=== PATIENT | male | born 1950 | race Caucasian/White ===

== ENCOUNTER 2019-01-14 06:50 | Day surgery (SDC) | payer MEDICARE, BC ==
[~2019-01-14] VITALS: Ht 182.9 cm; Wt 74.8 kg
[~2019-01-14 06:50] MED LIST: IMAT400T2 PO; INSU100C6 SQ; LISI-186 PO; PIOG45TA5 PO
[2019-01-14] MEDS ORDERED: LISI10TA5 MT (07:46)
[2019-01-14] MEDS ORDERED: FENTANYL CITRATE/PF 50MCG/ML 2ML VIAL ONE (08:03)
[2019-01-14] MEDS ORDERED: LIDOCAINE HCL 1% 20ML VIAL (Pyxis) INJ ONE (08:03)
[2019-01-14] MEDS ORDERED: IODIXANOL 320MG/ML 100 ML BOTTLE IV ONE (08:03)
[2019-01-14] MEDS ORDERED: MIDAZOLAM HCL 2 MG/2 ML VIAL ONE ×2 (08:03→09:21)
[2019-01-14] MEDS ORDERED: ACETAMINOPHEN 325MG TABLET PO PRN (10:00)
[2019-01-14] MEDS ORDERED: ONDANSETRON HCL 4MG/2ML INJ IV PRN (10:00)
[2019-01-14] MEDS ORDERED: ATROPINE SULFATE 1MG/10ML SYR IV PRN (10:00)
[2019-01-14] MEDS ORDERED: NICARDIPINE 100MCG/ML 10ML VIAL (CATH LAB) IV ONE (15:14)
[2019-01-14] MEDS ORDERED: NITROGLYCERIN 50MCG/ML 10ML VIAL (CATH LAB) IV ONE (15:14)
[2019-01-14] MEDS ORDERED: HEPARIN SODIUM 1,000 UNIT/1ML VIAL IV ONE (15:14)
== END 2019-01-15 13:30 | disposition home or self-care (01) ==
LOC: CCL 06:50
PROVIDERS: ATTEND Specialist
DX: I35.0 Nonrheumatic aortic (valve) stenosis (principal); I10 Essential (primary) hypertension; E11.9 Type 2 diabetes mellitus without complications; E78.5 Hyperlipidemia, unspecified; Z79.4 Long term (current) use of insulin; Z79.899 Other long term (current) drug therapy; Z82.49 Family history of ischemic heart disease and other diseases of the circulatory system
CPT/HCPCS: 82962; 93454; 99152; C1769; C1887; C1893; J1644; J2250; J3010; J3490; Q9967; G0500